=== PATIENT | female | born 1940 | race Caucasian/White ===

== ENCOUNTER 2024-11-24 07:27 | Day surgery (SDC) | payer OTHER, MEDICAID ==
[~2024-11-24] VITALS: Ht 154.9 cm; Wt 65.9 kg
[~2024-11-24 07:27] MED LIST: ALEN70TA80 PO; AMLO5TAB66 PO; APIX5TAB PO; ATOR-2 PO; BRIM5DRO9 OS; CHOL200059 PO; FentaNYL CITRATE PF 100 MCG/2 ML VIAL ONE; KETOROLAC TROMETHAMINE 0.5% 5 ML OPHTHALMIC SOLUTION ONE; MEMA5TAB16 PO; MIDAZOLAM HCL 2 MG/2 ML VIAL ONE; MOXIFLOXACIN HCL 0.5% 3 ML OPHTHALMIC SOLUTION ONE; OS500 PO; PANT40TA54 PO; PHENYLEPHRINE HCL 2.5% 2 ML OPHTHALMIC SOLUTION ONE; RINGERS SOLUTION,LACTATED 500 ML IV ONE; TIMO5DRO21 OS; TROPICAMIDE 1% 2 ML OPHTHALMIC SOLUTION ONE
[2024-11-24] MEDS ORDERED: CHONDR SULF A SOD/HYALURONATE 1.05 ML KIT IO ONE (07:28)
[2024-11-24] MEDS ORDERED: RINGERS SOLUTION,LACTATED 500 ML IV ONE (08:00)
[2024-11-24] MEDS: PHENYLEPHRINE HCL 2.5% 2 ML OPHTHALMIC SOLUTION OD SCH (08:15)
[2024-11-24] MEDS: MOXIFLOXACIN HCL 0.5% 3 ML OPHTHALMIC SOLUTION OD SCH (08:15)
[2024-11-24] MEDS: TROPICAMIDE 1% 2 ML OPHTHALMIC SOLUTION OD SCH (08:15)
[2024-11-24] MEDS: KETOROLAC TROMETHAMINE 0.5% 5 ML OPHTHALMIC SOLUTION OD SCH (08:15)
[2024-11-24] MEDS: TETRACAINE HCL/PF 0.5% 4 ML OPHTHALMIC SOLUTION ONE (08:45)
[2024-11-24] MEDS: EPINEPHrine 1:1,000 [1 MG/ML] VIAL ONE (08:58)
[2024-11-24] MEDS: BALANCED SALT 15 ML OPHTHALMIC IRRIG.SOLN ONE (08:58)
[2024-11-24] MEDS: LIDOCAINE/PF 1% 2 ML VIAL ONE (08:59)
[2024-11-24] MEDS: POVIDONE-IODINE 5% 30 ML OPHTHALMIC SOLUTION ONE (08:59)
== END 2024-11-24 09:45 | disposition home or self-care (01) ==
LOC: SURGERY 07:27
PROVIDERS: ATTEND Ophthalmology
DX: H25.11 Age-related nuclear cataract, right eye (principal); E78.00 Pure hypercholesterolemia, unspecified; M81.0 Age-related osteoporosis without current pathological fracture; I48.91 Unspecified atrial fibrillation; I10 Essential (primary) hypertension; F03.90 Unspecified dementia, unspecified severity, without behavioral disturbance, psychotic disturbance, mood disturbance, and anxiety; Z86.73 Personal history of transient ischemic attack (TIA), and cerebral infarction without residual deficits; Z95.0 Presence of cardiac pacemaker
CPT/HCPCS: 66984; 93005; J7321; J0171; J3010; J3490; J2250; J7120; V2632